=== PATIENT | female | born 1960 | race Caucasian/White ===

== ENCOUNTER → 2019-08-05 | Outpatient (CLI) | payer BC ==
--- NOTE | 2019-08-05 09:03 | RADIOLOGY REPORT (SQ) ---
EXAM DESCRIPTION: MRI RT UPPER JOINT WITHOUT COMPLETED DATE/TIME: 08/05/2019 8:15 am REASON FOR STUDY: RIGHT SHOULDER PAIN (M25.511) M25.511 PAIN IN RIGHT SHOULDER COMPARISON: None. TECHNIQUE: Non arthrogram imaging of the right shoulder images acquired and stored on PACS. Multipla enoch imaging to include fat sensitive sequences such as T1, water sensitive sequences such as FST2/STI R, cartilage sensitive sequences such as FSPD/gradient-echo sequences. LIMITATIONS: None. FINDINGS: BONE MARROW AND CORTEX: No worrisome bone lesions or marrow replacement. No occult fractur es. JOINT OR BURSAL EFFUSION: No large joint effusion. Fluid communicates with the subacromial/ subdelto id bursa through a defect in the supraspinatus tendon GLENO-HUMERAL ARTICULATION: Normal articulation. No subluxation. No cystic change. No osteophytes. M ild chondromalacia. ACROMION AND AC JOINT: Type 4 acromion with mild acromioclavicular joint hypertrophy. No significan t narrowing of the subacromial space ROTATOR CUFF AND INTERVAL: A full-thickness tear is present in the anterior half of the supraspinatus tendon extending into the rotator interval. This is best shown on sagittal images 4-8 and coronal i mages 10-14. There is tendinopathy throughout the posterior half of the supraspinatus tendon, and tendinopathy nash ng the superficial aspect of the infraspinatus tendon. Subscapularis is intact. LABRUM AND BICEPS LABRAL COMPLEX: Intra-articular long head biceps tendon is thickened and high in s ignal from tendinopathy. Small superior labral tear on axial images 4-6. REMAINDER OF LABRUM AND IGHL : No gross tear or paralabral cyst formation. Labral evaluation is less than optimal without joint distention. No thickening of IGHL to suggest adhesive capsulitis. PERIARTICULAR AND ADJACENT SOFT TISSUES: No masses or abnormal nodes. OTHER: No other significant finding. IMPRESSION: Anterior half distal supraspinatus tendon tear extending into the rotator interval. Infraspinatus tendon and long head biceps tendinopathy. Small superior labral tear TECHNICAL DOCUMENTATION: JOB ID: [id number] [employer]- All Rights Reserved Reading location - IP/workstation name: [email or web address]
== END ==
LOC: RAD 07:17
PROVIDERS: ATTEND Physician Assistant
DX: M75.121 Complete rotator cuff tear or rupture of right shoulder, not specified as traumatic (principal); M25.511 Pain in right shoulder